=== PATIENT | male | born 2000 | race Hispanic/Latino ===

== ENCOUNTER 2019-01-22 17:34 | Emergency (ER) | payer SELFPAY ==
[~2019-01-22 17:34] MED LIST: BUSP5TAB3 PO; DEXT20TA6 PO; LISI-613 PO; PRED20TA3 PO; ROPI1TAB11 PO; TRAM50TA4 PO
[2019-01-22] MEDS ORDERED: CIPROFLOXACIN HCL 0.3% 5ML DROPS OP SCH (19:30)
[2019-01-22] MEDS ORDERED: LIDOCAINE HCL-MPF 1% 2ML VIAL ONE (19:33)
[2019-01-22] MEDS ORDERED: CEFTRIAXONE SODIUM 1 GM ONE (19:33)
[2019-01-22] MEDS ORDERED: AZITHROMYCIN 250 MG TABLET PO ONE (19:34)
== END 2019-01-22 19:52 | disposition home or self-care (01) ==
LOC: EDH 17:34
DX: H10.021 Other mucopurulent conjunctivitis, right eye (principal); H16.001 Unspecified corneal ulcer, right eye; I10 Essential (primary) hypertension; F41.9 Anxiety disorder, unspecified; F32.9 Major depressive disorder, single episode, unspecified; Z72.0 Tobacco use; Z79.899 Other long term (current) drug therapy
CPT/HCPCS: 96372; 99283; J0696; J3490

== ENCOUNTER 2024-01-23 14:43 | Emergency (ER) | payer BC, OTHER ==
[~2024-01-23] VITALS: Ht 182.9 cm; Wt 172.4 kg
[~2024-01-23 14:43] MED LIST changes: -LISI-613 PO; +LISI20TA24 PO; -ROPI1TAB11 PO; +ROPI1TAB46 PO
[2024-01-23 15:52] LABS: BASOPHILS # (AUTO) 0.02 K/uL (0.00-0.20); BASOPHILS % (AUTO) 0.3 % (0.0-5.0); EOSINOPHILS # (AUTO) 0.14 K/uL (0.00-0.70); EOSINOPHILS % (AUTO) 1.9 % (0.0-8.0); HEMATOCRIT 48.2 % (42-54); IMMATURE GRANULOCYTE ABSOLUTE 0.02 K/uL (0-1); LYMPHOCYTES # (AUTO) 2.6 K/uL (1.0-4.8); LYMPHOCYTES % (AUTO) 34.9 % (21.0-51.0); MEAN CORPUSCULAR HEMOGLOBIN 28.2 pg (27.0-33.0); MEAN CORPUSCULAR VOLUME 85.5 fL (79-99); MONOCYTES # (AUTO) 0.4 K/uL (0.1-1.0); MONOCYTES % (AUTO) 5.6 % (3.0-13.0); NEUTROPHILS # (AUTO) 4.2 K/uL (1.8-7.7); PLATELET COUNT (AUTO) 294 K/uL (130-400); RED BLOOD CELL COUNT(AUTO) 5.64 MIL/uL (4.50-6.20); RED CELL DISTRIBUTION WIDTH 12.6 % (11.0-15.5); WHITE BLOOD COUNT (AUTO) 7.3 K/uL (4.8-10.8)
[2024-01-23 15:52] LABS: APPEARANCE,URINE CLEAR (CLEAR); BILIRUBIN,URINE NEGATIVE (NEGATIVE); COLOR,URINE LIGHT-YELLOW (YELLOW); GLUCOSE, URINE (UA) NEGATIVE (NEGATIVE); KETONES,URINE NEGATIVE (NEGATIVE); LEUKOCYTE ESTERASE ,URINE NEGATIVE Leu/uL (NEGATIVE); NITRATE,URINE NEGATIVE (NEGATIVE); OCCULT BLOOD,URINE NEGATIVE (NEGATIVE); PROTEIN,URINE NEGATIVE (NEGATIVE); UROBILINOGEN,URINE 0.2 mg/dL (0.2-1.0)
[2024-01-23 15:56] LABS: ADD UA MICROSCOPIC YES
[2024-01-23 16:14] LABS: CREATININE 0.9 mg/dL (0.5-1.5)
[2024-01-23 16:18] LABS: ALBUMIN 3.6 g/dL (3.5-5.0); BILIRUBIN,TOTAL 0.2 mg/dL (0.2-1.0); TOTAL PROTEIN, SERUM 7.5 g/dL (6.0-8.3)
[2024-01-23 16:25] LABS: MUCUS,URINE RARE LPF (None Seen); RBC,URINE 0-1 /HPF (0-1); UNCLASSIFIED CRYSTAL 1 /HPF (None Seen); WBC,URINE 0-1 /HPF (0-1)
[2024-01-23 16:45] VITALS: BP 127/78; PULSE 112; RESP 20; O2SAT 99
[2024-01-23 17:11] LABS: HEMOGLOBIN A1C 5.7 % (4.0-6.0)
== END 2024-01-23 19:18 | disposition left against medical advice (07) ==
LOC: EDH 14:43
DX: F41.9 Anxiety disorder, unspecified (principal); G43.909 Migraine, unspecified, not intractable, without status migrainosus; H53.8 Other visual disturbances; Z53.21 Procedure and treatment not carried out due to patient leaving prior to being seen by health care provider
CPT/HCPCS: 36415; 80053; 81001; 83036; 85025

== ENCOUNTER 2024-12-03 23:50 | Emergency (ER) | payer BC ==
[~2024-12-03] VITALS: Ht 182.9 cm; Wt 163.3 kg
[2024-12-04] MEDS: 0.9%NACL 1000ML 1,000 ML IV ONE (00:58)
[2024-12-04 01:00] LABS: APPEARANCE,URINE CLEAR (CLEAR); BILIRUBIN,URINE NEGATIVE (NEGATIVE); COLOR,URINE LIGHT-YELLOW (YELLOW); GLUCOSE, URINE (UA) NEGATIVE (NEGATIVE); KETONES,URINE NEGATIVE (NEGATIVE); LEUKOCYTE ESTERASE ,URINE NEGATIVE Leu/uL (NEGATIVE); NITRATE,URINE NEGATIVE (NEGATIVE); PROTEIN,URINE 10 mg/dL (NEGATIVE)
[2024-12-04 01:02] LABS: ADD UA MICROSCOPIC YES
[2024-12-04 01:04] LABS: MUCUS,URINE RARE LPF (None Seen); RBC,URINE 0-1 /HPF (0-1); SQUAMOUS EPITHELIAL CELL,UR RARE /HPF (0-2); WBC,URINE 0-1 /HPF (0-1)
[2024-12-04 01:05] LABS: BASOPHILS # (AUTO) 0.03 K/uL (0.00-0.20); BASOPHILS % (AUTO) 0.3 % (0.0-5.0); EOSINOPHILS # (AUTO) 0.13 K/uL (0.00-0.70); EOSINOPHILS % (AUTO) 1.3 % (0.0-8.0); HEMATOCRIT 47.4 % (42-54); IMMATURE GRANULOCYTE ABSOLUTE 0.05 K/uL (0-1); LYMPHOCYTES # (AUTO) 3.4 K/uL (1.0-4.8); LYMPHOCYTES % (AUTO) 33.3 % (21.0-51.0); MEAN CORPUSCULAR HEMOGLOBIN 27.8 pg (27.0-33.0); MEAN CORPUSCULAR HGB CONC 33.3 g/dL (32.0-36.0); MEAN CORPUSCULAR VOLUME 83.3 fL (79-99); MONOCYTES # (AUTO) 0.9 K/uL (0.1-1.0); MONOCYTES % (AUTO) 8.7 % (3.0-13.0); NEUTROPHILS # (AUTO) 5.7 K/uL (1.8-7.7); NEUTROPHILS % (AUTO) 55.9 % (40.0-77.0); PLATELET COUNT (AUTO) 260 K/uL (130-400); RED BLOOD CELL COUNT(AUTO) 5.69 MIL/uL (4.50-6.20); RED CELL DISTRIBUTION WIDTH 12.8 % (11.0-15.5); WHITE BLOOD COUNT (AUTO) 10.1 K/uL (4.8-10.8)
[2024-12-04 01:06] LABS: CREATININE 1.1 mg/dL (0.5-1.3); POTASSIUM 4.6 mmol/L (3.5-5.1)
[2024-12-04 01:08] LABS: AMPHET/METH SCREEN,URINE POSITIVE (NEGATIVE); BARBITURATE SCREEN, URINE NEGATIVE (NEGATIVE); BENZODIAZEPINES SCREEN,URINE NEGATIVE (NEGATIVE); CANNABINOID SCREEN,URINE NEGATIVE (NEGATIVE); COCAINE SCREEN,URINE NEGATIVE (NEGATIVE); OPIATE SCREEN,URINE NEGATIVE (NEGATIVE); PHENCYCLIDINE SCREEN,URINE NEGATIVE (NEGATIVE)
--- NOTE | 2024-12-04 02:45 | ERN ---
ED Note History of Present Illness Stated Complaint: POSSIBLE SYNCOPE EPISODES Chief Complaint: Syncope Time Seen by MD: 23:54 Time Seen by Midlevel: 23:54 Dictation: The patient is a 24-year-old male with a history of anxiety, depression, hypertension who presents to the emergency department with complaints of generalized weakness after what patient describes as an emotional event. Patient reports he was talking to a friend on face time and was about to lab when he felt like he went week. Denies any syncope or loss of consciousness. Patient reports these episodes have been going on for over a year. Has not seek any help over this. Patient denies any nausea, vomiting, diarrhea, chest pain, shortness of breath. No other complaints reported. Allergies: Coded Allergies: No Known Drug Allergies (Unverified Allergy, Unknown, 07/07/18) Home Meds Reported Medications Tramadol Hcl (Tramadol HCl) 50 Mg Tablet, 50 MG PO BID PRN for PAIN LEVEL 4 TO 6, TAB 07/07/18 Ropinirole HCl (Ropinirole HCl) 1 Mg Tablet, 1 MG PO DAILY, TAB 07/07/18 Prednisone (Prednisone) 20 Mg Tablet, 20 MG PO BID, TAB 07/07/18 Lisinopril (Lisinopril) 20 Mg Tablet, 20 MG PO DAILY, TAB 18 Buspirone HCl (Buspirone HCl) 5 Mg Tablet, 5 MG PO BID, TAB 07/07/18 Dextroamphetamine/Amphetamine (Amphetamine Salts 20 mg Tablet) 20 Mg Tablet, 20 MG PO BID, TAB 07/07/18 Past Medical History Past Medical History: Anxiety, Depression, Hypertension Additional Past Medical Hx: INSOMNIA Surgical History: None Surgical History Other: Ingrown toe nail surgery Social History: Smokers RN Note Reviewed/Agreed w/PFSH: Yes Review of System Dictation Constitutional: Negative for fever,chills, and weight loss Eyes: Negative for injury, pain,redness, and discharge ENT: Negative for injury,pain or swelling Cardiovascular: Negative for chest pain, palpitations, and edema Respiratory: Negative for shortness of breath, cough, and wheezing, Abdomen/GI: Negative for abdominal pain, nausea, vomiting, diarrhea, and constipation Back: Negative for injury and pain : Negative for injury, bleeding and discharge MS/Extremity: Negative for injury and deformity Skin: Negative for rash, and discoloration Neuro: Negative for headache, numbness, tingling, and seizure positive for generalized weakness Psych: Negative for suicide ideation, homicidal ideation, and hallucinations Initial Vital Sign VS Vital Signs Date Time Temp Pulse Resp B/P (MAP) Pulse Ox O2 Delivery O2 Flow Rate FiO2 12/03/24 23:51 98.2 120 16 122/90 99 Room Air 0 12/04/24 00:58 21 Physical Exam Dictation Vital Signs reviewed General Appearance: Alert, oriented x 3, no acute distress, well developed, n ourished. Head and Face: non-traumatic. Eyes: PERRL, pink conjunctivas, eyelid no trauma, anterior chamber with arcus senilis. Ears: Pinnas intact and no signs of trauma or erythema ear canals clear and no discharge TM no erythema Nose: No discharge, no bleeding. Oropharynx: Mouth normal, tongue pink. pharynx clear,no erythema, tonsils no exudates, no abscesses noted, mucous m embrane moist Neck: Supple, non-tender, no thyromegaly, no masses, no JVD, no bruits Breast:Deferred Chest:No tenderness, no crepitus, no paradoxical movement, no retractions Lungs:Clear, well-ventilated, symmetric, no rales, no wheezing, no rhonchi, no stridor, good breath sounds bilaterally Heart: Regular rate, regular rhythm, no murmur, no gallops Vascular: no peripheral edema, Abdomen: Soft, positive bowel sounds, nondistended, no guarding, nontender, no rebound, no masses no hepatomegaly, no splenomegaly, no Rogel's sign, no hernias. Rectal: Deferred Genital: Deferred Neurological: Normal speech, motor function intact, sensory function intact , no slurred speech, upper extremities equal and strength, lower extremities equal and strength Musculoskeletal: Neck nontender, full range of motion, back nontender, full range of motion, Extremities: nontender, full range of motion Skin: Color pink, dry, no turgor, no rash, no lacerations, no abrasions, no contusions. Lymphatic: Deferred Results (Laboratory/Radiology) Laboratory/Radiology Laboratory Tests Test 12/04/24 00:40 12/04/24 00:48 White Blood Count 10.1 K/uL (4.8-10.8) Red Blood Count 5.69 MIL/uL (4.50-6.20) Hemoglobin 15.8 g/dL (14.0-18.0) Hematocrit 47.4 % (42-54) Mean Corpuscular Volume 83.3 fL (79-99) Mean Corpuscular Hemoglobin 27.8 pg (27.0-33.0) Mean Corpuscular Hemoglobin Concent 33.3 g/dL (32.0-36.0) Red Cell Distribution Width 12.8 % (11.0-15.5) Platelet Count 260 K/uL (130-400) Mean Platelet Volume 9.2 fL (7.5-10.5) Immature Granulocyte % (Auto) 0.5 % (0-1) Neutrophils (%) (Auto) 55.9 % (40.0-77.0) Lymphocytes (%) (Auto) 33.3 % (21.0-51.0) Monocytes (%) (Auto) 8.7 % (3.0-13.0) Eosinophils (%) (Auto) 1.3 % (0.0-8.0) Basophils (%) (Auto) 0.3 % (0.0-5.0) Neutrophils # (Auto) 5.7 K/uL (1.8-7.7) Lymphocytes # (Auto) 3.4 K/uL (1.0-4.8) Monocytes # (Auto) 0.9 K/uL (0.1-1.0) Eosinophils # (Auto) 0.13 K/uL (0.00-0.70) Basophils # (Auto) 0.03 K/uL (0.00-0.20) Absolute Immature Granulocyte (auto 0.05 K/uL (0-1) Nucleated Red Blood Cells 0.0 % (0.0-0.19) Sodium Level 142 mmol/L (136-145) Potassium Level 4.6 mmol/L (3.5-5.1) Chloride Level 102 mmol/L (101-111) Carbon Dioxide Level 32 mmol/L (21-32) Blood Urea Nitrogen 16 mg/dL (7-18) Creatinine 1.1 mg/dL (0.5-1.3) Glomerular Filtration Rate Calc 96 mL/min (>90) Random Glucose 83 mg/dL (70-105) Total Calcium 9.1 mg/dL (8.5-10.1) Total Creatine Kinase 304 U/L (21-232) #H Troponin I High Sensitivity 7 ng/L (4-75) Urine Color LIGHT-YELLOW (YELLOW) Urine Appearance CLEAR (CLEAR) Urine pH 6.0 (5.0-8.0) Urine Specific [place] 1.030 (1.001-1.031) Urine Protein 10 mg/dL (NEGATIVE) H Urine Glucose (UA) NEGATIVE mg/dL (NEGATIVE) Urine Ketones NEGATIVE mg/dL (NEGATIVE) Urine Occult Blood +- (TRACE) (NEGATIVE) H Urine Nitrate NEGATIVE (NEGATIVE) Urine Bilirubin NEGATIVE mg/dL (NEGATIVE) Urine Urobilinogen 2.0 mg/dL (0.2-1.0) H Urine Leukocyte Esterase NEGATIVE Demar/uL Urine RBC 0-1 /HPF (0-1) Urine WBC 0-1 /HPF (0-1) Urine Squamous Epithelial Cells RARE /HPF (0-2) Urine Bacteria None /HPF (None Seen) Urine Opiates Screen NEGATIVE (NEGATIVE) Urine Barbiturates Screen NEGATIVE (NEGATIVE) Urine Phencyclidine Screen NEGATIVE (NEGATIVE) Urine Amphetamines Screen POSITIVE (NEGATIVE) H Urine Benzodiazepines Screen NEGATIVE (NEGATIVE) Urine Cocaine Screen NEGATIVE (NEGATIVE) Urine Marijuana (THC) Screen NEGATIVE (NEGATIVE) Labs Reviewed?: Yes EKG: (+) rhythm, (+) unchanged (Compared to 04/18/2019) EKG Comment: EKG 12/04/2024 0130 regular rate 95, sinus rhythm, regular rate and rhythm, no STEMI. ED Course ED Course Orders Procedure Category Date Status Time Cbc With Differential LAB 12/04/24 Complete 00:23 Chest 1vw RAD 12/04/24 Taken 00:23 12 Lead Ekg Tracing- EKG 12/04/24 Logged Technical 00:23 0.9%Nacl 1000ml (Ns PHA 12/04/24 Complete 1000ml) 00:30 Creatine Kinase, Total LAB 12/04/24 Complete 00:23 Troponin I High LAB 12/04/24 Complete Sensitivity 00:23 Urinalysis Profile LAB 12/04/24 Complete 00:23 Basic Metabolic Panel LAB 12/04/24 Complete 00:23 Drug Screen Urine LAB 12/04/24 Complete 00:23 Ct Head/Brain W/O CT 12/04/24 Taken Contrast 00:51 Current Medications Medications (Trade) Dose Ordered Sig/Greg Route PRN Reason Start Time Stop Time Status Last Admin Dose Admin Sodium Chloride 1,000 ml @ 0 mls/hr ONCE ONCE IV 12/04/24 00:30 12/04/24 00:31 DC 12/04/24 00:58 Vital Signs Date Time Temp Pulse Resp B/P (MAP) Pulse Ox O2 Delivery O2 Flow Rate FiO2 12/04/24 02:38 90 18 122/79 98 Room Air* 0 21 12/04/24 00:58 104 18 150/85 98 Room Air* 0 21 12/03/24 23:51 98.2 120 16 122/90 99 Room Air 0 Medical Decision Making MDM The patient is a 24-year-old male with a history of anxiety, depression, hypertension who presents to the emergency department with complaints of generalized weakness after what patient describes as an emotional event. Patient reports he was talking to a friend on face time and was about to lab when he felt like he went week. Denies any syncope or loss of consciousness. Patient reports these episodes have been going on for over a year. Has not seek any help over this. Patient denies any nausea, vomiting, diarrhea, chest pain, shortness of breath. No other complaints reported. CBC showed no leukocytosis, no anemia, chemistry showed no electrolyte imbalance, toxicology positive for amphetamines CT showed no intracranial bleeding or hemorrhage, no midline shift or mass effect. Patient continues in no distress. Will be discharged to follow up with PCP and possibly a Neurology referral. Patient has been having symptoms for every a year. Differential diagnosis: Electrolyte imbalance, dehydration, ACS, intracerebral hemorrhage Need for hospitalization: Patient does not meet criteria for hospitalization. There are no social concerns with this patient. DX & DISP Disposition: Discharge Departure Impression: Primary Impression: Near syncope Additional Impressions: Weakness, Amphetamine abuse Condition: Stable Additional Instructions: Please follow up with your primary doctor. If you continue having these types of symptoms you might need to be referred to neurologist. Please return to ER if symptoms worsen. FOLLOW-UP WITH PRIMARY CARE PROVIDER IN 1 TO 2 DAYS. TAKE MEDICATIONS DIRECTED HERE IN THE EMERGENCY ROOM. OKAY TO CONTINUE HOME MEDICATIONS UNLESS OTHERWISE DISCUSSED DURING YOUR VISIT IN THE EMERGENCY ROOM TODAY. RETURN TO YOUR NEAREST EMERGENCY ROOM IF SYMPTOMS WORSEN OR IF THERE IS NO IMPROVEMENT. CALL 911 IF YOU NEED IMMEDIATE ASSISTANCE. TAKE TYLENOL OR MOTRIN [id number] NEEDED AND IF NO CONTRAINDICATIONS ARE PRESENT. INCREASE ORAL HYDRATION. A WOUND CULTURE OR URINE CULTURE WAS ORDERED HERE IN THE EMERGENCY ROOM DEPARTMENT PLEASE FOLLOW-UP WITH PRIMARY CARE PROVIDER AND ADVISE THEM TO GET REPEAT PORTS FROM OUR FACILITY. IF YOU HAD ANY ALESHA WRAP/SPLINTS T HAT WERE APPLIED HERE, PLEASE DO NOT REMOVE THEM UNTIL YOU SEE YOUR PRIMARY CARE OR SPECIALTY. Referrals: RAN VALDERRAMA M.D. (PCP) Time of Disposition: 03:40 I have reviewed the case, and I agree with, Diagnosis and Plan LINETTE PHILLIP Dec 04, 2024 02:45
[2024-12-04 04:14] VITALS: BP 132/74; PULSE 80; RESP 18; TEMP 98.2; O2SAT 98
--- NOTE | 2024-12-04 06:54 | EKG ---
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
--- NOTE | 2024-12-04 08:23 | HMCIMG ---
Exam: NONCONTRAST CT BRAIN REASON: near syncope. COMPARISON: None. TECHNIQUE: Images are obtained from vertex to the skull base. The exam was performed without IV contrast. FINDINGS: There is normal appearing brain parenchyma. There are no focal mass lesions. There is is no evidence of intracranial hemorrhage or acute stroke. Ventricles and sulci appear normal. Posterior fossa and brainstem structures are unremarkable. Paranasal sinuses and remaining extracranial soft tissues appear normal as well. IMPRESSION: 1. Normal noncontrast CT brain. CT was performed with one or more following dose reduction techniques: automated exposure control, adjustment of the mA and kv according to patient's size, or use of a iterative reconstruction technique.
--- NOTE | 2024-12-04 08:49 | HMCIMG ---
CHEST 1VW REASON: sob COMPARISON: 07/06/2020 FINDINGS: Single view of the chest was obtained. Lungs are clear. Heart size is normal. There is no pulmonary vascular congestion. Mediastinum and bony thorax appear unremarkable. IMPRESSION: 1. Normal single view chest x-ray.
== END 2024-12-04 04:15 | disposition home or self-care (01) ==
LOC: EDH 23:50
DX: R55 Syncope and collapse (principal); R53.1 Weakness; F15.10 Other stimulant abuse, uncomplicated; F17.200 Nicotine dependence, unspecified, uncomplicated; F41.9 Anxiety disorder, unspecified; I10 Essential (primary) hypertension; I21.9 Acute myocardial infarction, unspecified; Z79.52 Long term (current) use of systemic steroids; Z79.899 Other long term (current) drug therapy
CPT/HCPCS: 99284; 82550; 84484; 80048; 80305; 85025; 36415; 81001; 96360; 70450; 71045; 93005; J7030

== ENCOUNTER 2025-11-29 03:02 | Emergency (ER) | payer SELFPAY ==
[~2025-11-29] VITALS: Ht 182.9 cm; Wt 176.9 kg
[2025-11-29] MEDS ORDERED: CLIN-141 PO (04:08)
[2025-11-29] MEDS ORDERED: ACET-2079 PO (04:08)
[2025-11-29] MEDS ORDERED: IBUP-2077 PO (04:08)
--- NOTE | 2025-11-29 04:09 | ERN ---
General Chief Complaint: Tooth Ache/Pain Stated Complaint: L MOLAR TOOTHACHE Time Seen by MD: 03:06 History of Present Illness Initial Comments 25-year-old male who presents for left lower dental pain for the last few months. He has been taking Tylenol at home but he reports it is worsening. No fevers. No vomiting. No other complaints. No medical comorbidities other than obesity. Allergies: Coded Allergies: No Known Drug Allergies (Unverified Allergy, Unknown, 07/07/18) Home Meds Reported Medications Tramadol Hcl (Tramadol HCl) 50 Mg Tablet, 50 MG PO BID PRN for PAIN LEVEL 4 TO 6, TAB 07/07/18 Ropinirole HCl (Ropinirole HCl) 1 Mg Tablet, 1 MG PO DAILY, TAB 07/07/18 Prednisone (Prednisone) 20 Mg Tablet, 20 MG PO BID, TAB 07/07/18 Lisinopril (Lisinopril) 20 Mg Tablet, 20 MG PO DAILY, TAB 07/07/18 Buspirone HCl (Buspirone HCl) 5 Mg Tablet, 5 MG PO BID, TAB 07/07/18 Dextroamphetamine/Amphetamine (Amphetamine Salts 20 mg Tablet) 20 Mg Tablet, 20 MG PO BID, TAB 07/07/18 Past Medical History Past Medical History: Anxiety, Depression, Hypertension, Seizure Medical History Other: INSOMNIA Past Surgical History: None Surgical History Other: Ingrown toe nail surgery Social History Social History: Smokers ROS Dictation CONSTITUTIONAL: No chills, no fever, no weakness, no diaphoresis, no malaise. HEAD/FACE: No signs of trauma. EENT: Dental pain RESPIRATORY: No cough, no orthopnea, no SOB, no stridor, no wheezing. CARDIOVASCULAR: No chest pain, no edema, no palpitations, no syncope. GASTROINTESTINAL/ABDOMINAL: No abdominal pain, no constipation, no diarrhea, no nausea, no vomiting. GENITOURINARY: No abnormal discharge, no dysuria, no frequent urination, no hematuria. No complaints of pain in the genitals. MUSCULOSKELETAL: No back pain, no gout, no joint pain, no joint swelling, no muscle pain, no muscle stiffness, no neck pain. INTEGUMENTARY: No change in color, no change in hair/nails, no dryness, no lesion, no lumps, no rash. NEUROLOGICAL/PSYCH: No anxiety, not depressed, no emotional problem, no headache, no numbness, no pre-existing deficit, no history of seizures, no tremors, no weakness. HEMATOLOGIC/LYMPHATIC: Not anemic, no history of blood clots, no apparent bleeding, no bruising, glands not swollen. All Systems Negative, Except as Noted. Physical Exam Physical Exam Dictation VITAL SIGNS: Reviewed. GENERAL APPEARANCE: Alert, oriented x3, no acute distress, obese. HEAD AND FACE: Non-traumatic. EYES: PERRL, pink conjunctivas, eyelid no trauma, anterior chamber clear. EARS: Pinnas intact and no signs of trauma or erythema. Ear canals clear and no discharge. TMs no erythema. NOSE: No discharge, no bleeding. OROPHARYNX: Mouth normal, teeth no caries, tongue pink. Pharynx clear, no erythema. Tonsils no exudates, no abscesses noted. Mucous membrane moist. NECK: Supple, non-tender, no thyromegaly, no masses, no JVD, no bruits. BREAST: Deferred. CHEST: No tenderness, no crepitus, no paradoxical movement, no retractions. LUNGS: Clear, well-ventilated, symmetric, no rales, no wheezing, no rhonchi, no stridor, good breath sounds bilaterally. HEART: Regular rate, regular rhythm, no murmur, no gallops. VASCULAR: No peripheral edema. ABDOMEN: Soft, positive bowel sounds, nondistended, no guarding, nontender, no rebound, no masses no hepatomegaly, no splenomegaly, no Rogel's sign, no hernias. RECTAL: Deferred. GENITAL: Deferred. NEUROLOGICAL: Normal speech, gross motor function intact, gross sensory function intact. MUSCULOSKELETAL: Neck nontender, full range of motion, back nontender, full range of motion. EXTREMITIES: Nontender, full range of motion. SKIN: Color pink, dry, no turgor, no rash, no lacerations, no abrasions, no contusions. LYMPHATICS: Deferred. MDM CC: Dental pain Historian: Patient Comorbidities: Obesity Limitations: None Differential diagnosis: Dental pain, infection, other Vital signs are stable No labs or imaging indicated On clinical exam he has a broken chipped tooth in the bottom left which hurts. There was no signs of abscess or swelling. No clinical signs of SIRS or sepsis. He is nontoxic in appearance. Received IM Toradol and p.o. Tylenol here in the ER. Plan will be to discharge where Tylenol with codeine, ibuprofen, clindamycin in her recommend dental follow up. ED Course Orders Procedure Category Date Status Time Ketorolac PHA 11/29/25 Complete Tromethamine 15mg/Ml 03:30 Acetaminophen 500mg PHA 11/29/25 Complete Tab (Tylenol 500mg T 03:30 Current Medications Medications (Trade) Dose Ordered Sig/Greg Route PRN Reason Start Time Stop Time Status Last Admin Dose Admin Acetaminophen (TYLenol 500MG TAB) 1,000 mg ONCE ONCE PO 11/29/25 03:30 11/29/25 03:31 DC 11/29/25 03:39 Ketorolac Tromethamine (toRADol) 15 mg ONCE ONCE IV 11/29/25 03:30 11/29/25 03:31 DC 11/29/25 03:39 Vital Signs Date Time Temp Pulse Resp B/P (MAP) Pulse Ox O2 Delivery O2 Flow Rate FiO2 11/29/25 03:03 99.1 114 16 127/65 98 Room Air 0 DX & DISP Disposition: Discharge Departure Impression: Primary Impression: Dental infection Condition: Stable Scripts Clindamycin HCl (Clindamycin HCl) 300 Mg Capsule 1 CAP PO TID for 10 Days, #30 CAP 0 Refills Prov: DIEGO ZAPATA DO 11/29/25 Ibuprofen (Ibuprofen 800 mg Tab) 800 Mg Tab 800 MG PO Q6H PRN for PAIN, #30 TAB Prov: DIEGO ZAPATA DO 11/29/25 Acetaminophen with Codeine (Acetaminophen-Cod #3 Tablet) 300 Mg-30 Mg Tablet 1 TAB PO Q6HPRN PRN for pain for 5 Days, #20 TAB 0 Refills Prov: DIEGO ZAPATA DO 11/29/25 Additional Instructions: You have a dental infection. You need to visit a dentist. I have prescribed clindamycin, which is an antibiotic. Please take as prescribed. I have prescribed ibuprofen and Tylenol with codeine to use as needed for pain. Alternate these medications. Please return to the emergency department if you have any concerns. Referrals: RAN VALDERRAMA M.D. (PCP) DIEGO ZAPATA DO Nov 29, 2025 04:09
[2025-11-29 04:16] VITALS: BP 171/99; PULSE 103; RESP 17; TEMP 99.1; O2SAT 98
== END 2025-11-29 04:19 | disposition home or self-care (01) ==
LOC: EDH 03:02
DX: K04.7 Periapical abscess without sinus (principal); F17.200 Nicotine dependence, unspecified, uncomplicated; F41.9 Anxiety disorder, unspecified; I10 Essential (primary) hypertension; Z79.52 Long term (current) use of systemic steroids; Z79.899 Other long term (current) drug therapy
CPT/HCPCS: 99283; 96374; J1885